=== PATIENT | female | born 1985 | race African-American/Black ===

== ENCOUNTER 2023-11-26 16:40 | Emergency (ER) | payer MEDICAID ==
[~2023-11-26] VITALS: Ht 170.2 cm; Wt 105.0 kg
[2023-11-26 16:40] VITALS: BP 150/66; PULSE 100; RESP 18; O2SAT 99
[2023-11-26] MEDS ORDERED: DONNATAL 5ml ORAL Elix (BELLADONNA ALK-PHENOBARB) PO ONE (18:30)
[2023-11-26] MEDS ORDERED: MAALOX PLUS or MAALOX 30 ML PO ONE (18:30)
[2023-11-26] MEDS ORDERED: LIDOCAINE VISCOUS 2% 15ML UD PO ONE (18:30)
== END 2023-11-26 22:05 | disposition left against medical advice (07) ==
LOC: ER 16:40
DX: R11.10 Vomiting, unspecified (principal); R12 Heartburn